=== PATIENT | female | born 1955 | race Caucasian/White ===

== ENCOUNTER 2018-04-23 19:28 | Emergency (ER) | payer OTHER, SELFPAY ==
[2018-04-23 19:35] VITALS: BP 103/62; PULSE 63; RESP 18; TEMP 36.8; O2SAT 99; BMI 18.3
--- NOTE | 2018-04-23 19:56 | PC.NURSE ---
Report from Toshia CHRISTIAN. Family sitting with patient in room. patient is sitting in wheelchiar with nose clips applied. no active bleeding seen but pt. is dabbing at nose in room and there are spots of blood on kleenex
--- NOTE | 2018-04-23 20:02 | ED.ABDPAIN ---
HPI - Abdominal Pain General Chief Complaint: Abdominal Pain Stated Complaint: SHARP PAIN RIGHT LOWER ABDOMINAL AREA Time Seen by Provider: 04/23/18 19:56 Source: patient and family Mode of arrival: ambulatory Limitations: no limitations History of Present Illness HPI narrative: Pleasant patient with history of interstitial cystitis presents with 2 episodes of sharp and stabbing right lower quadrant pain earlier today. She denies provocation, palliation or radiation of her symptoms. They are very brief in nature and not associated with any other symptoms such as fever, chills nor nausea, vomiting or diarrhea. Related Data Home Medications Medication Instructions Recorded Confirmed No Known Home Medications 04/23/18 04/23/18 Allergies Allergy/AdvReac Type Severity Reaction Status Date / Time itraconazole [From SPORANOX] Allergy Unknown Verified 04/23/18 19:54 Review of Systems Review of Systems All systems reviewed & are unremarkable except as noted in HPI and below Constitutional Denies chills, Denies fever(s), Denies lethargy and Denies weakness Eyes Denies change in vision, Denies eye discharge, Denies irritation and Denies loss of vision ENT Ears, Nose, Mouth, and Throat: Denies change in voice, Denies neck pain and Denies sore throat Cardiovascular Denies chest pain, Denies irregular heart rhythm, Denies lightheadedness, Denies palpitations, Denies dyspnea, Denies dyspnea on exertion and Denies orthopnea Respiratory Denies cough, Denies dyspnea, Denies dyspnea on exertion and Denies wheezing Gastrointestinal Gastrointestinal: Reports abdominal pain, Denies change in bowel habits, Denies diarrhea, Denies nausea and Denies vomiting Genitourinary Denies hematuria, Denies flank pain, Denies urinary incontinence and Denies urinary urgency Musculoskeletal Denies neck pain Integumentary/Breasts Denies pruritus, Denies erythema, Denies rash and Denies wounds Neurologic Denies confusion, Denies loss of vision and Denies weakness Psychiatric Denies anxiety, Denies confusion, Denies depression, Denies homicidal ideation and Denies suicidal ideation Endocrine Denies palpitations Hematologic/Lymphatic Denies easy bruising Allergic/Immunologic Denies wheezing Exam Initial Vital Signs Initial Vital Signs: Vital Signs Temperature 98.3 F 04/23/18 19:35 Pulse Rate 63 04/23/18 19:35 Respiratory Rate 18 04/23/18 19:35 Blood Pressure 103/62 04/23/18 19:35 Pulse Oximetry 99 04/23/18 19:35 Const General: cooperative and well developed Nutritional Appearance: well nourished Orientation: alert, awake, oriented x3 and not confused Eyes General: appearance normal, both eyes and all related structures Eyelids: eyelids normal Conjunctivae: conjunctivae normal Sclera: sclerae normal Pupils: PERRL EOM: EOM intact bilaterally Resp Effort & Inspection: normal respiratory effort, able to speak in complete sentences, no respiratory distress and no use of accessory muscles Auscultation: clear to auscultation bilaterally, no rales, no rhonchi and no wheezes GI Inspection: non-distended Palpation: soft, no hepatosplenomegaly, No guarding, No pulsatile mass and No tender Auscultation: normal bowel sounds Back/Spine/Pelvis Back: No CVA tenderness Cervical Spine: cervical ROM normal and No pain with cervical ROM Thoracic/Lumbar Spine: thoracic and lumbar spine normal to inspection Extrem General: full ROM, no clubbing, cyanosis or edema, no pedal edema and no calf tenderness Course Orders Ordered: Discontinued Medications Sodium Chloride (Normal Saline 0.9%) 1,000 mls @ 150 mls/hr IV CONT CATINA Vital Signs - 8 hr 04/23/18 19:35 04/23/18 21:00 Temperature 98.3 F Pulse Rate 63 59 L Respiratory Rate 18 16 Blood Pressure 103/62 Blood Pressure [Right Arm] 100/64 Pulse Oximetry 99 97 MDM - Abdominal Pain Differential Diagnosis Differential diagnosis: Likely abdominal pain, acute appendicitis, calculus of kidney, constipation and small bowel obstruction Medical Records Attestation: I reviewed the patient's medical records. Lab Data Attestation: I reviewed the patient's lab results. Result diagrams: 04/23/18 20:22 04/23/18 20:22 Lab Results 04/23/18 04/23/18 04/23/18 Range/Units 20:05 20:22 20:22 WBC 3.5 L (4.5-11.0) X10^3/uL RBC 4.04 (4.0-5.2) X10^6/uL Hgb 12.3 (12.0-16.0) g/dL Hct 36.7 (36-46) % MCV 90.8 (80-100) fL MCH 30.4 (26-34) PG MCHC 33.5 (30-36) % RDW 13.3 (11.6-14.8) % Plt Count 213 (150-400) X10^3/uL Neut % (Auto) 55.4 (50-75) % Lymph % (Auto) 33.1 (25-40) % [place] % (Auto) 9.3 (3-14) % Eos % (Auto) 1.6 L (2-4) % Baso % (Auto) 0.6 (0-2) % Neut # (Auto) 1900 L (9735-2639) /uL Sodium 140 (137-145) mmol/L Potassium 3.7 (3.4-5.1) mmol/L Chloride 100 (98-107) mmol/L Carbon Dioxide 32 (22-32) mmol/L BUN 25 H (7-17) mg/dL Creatinine 1.10 H (0.52-1.04) mg/dL Estimated GFR 50.2 L (>60) mL/min BUN/Creatinine Ratio 22.7 H (6-22) Glucose 116 H (80-110) mg/dL Calcium 9.1 (8.4-10.2) mg/dL Total Bilirubin 0.3 (0.2-1.3) mg/dL AST 28 (14-36) IU/L ALT 24 (9-52) IU/L Alkaline Phosphatase 38 (38-126) U/L Total Protein 6.8 (6.3-8.2) g/dL Albumin 4.4 (3.5-5.0) g/dL Globulin 2.4 (1.7-4.1) g/dL Albumin/Globulin Ratio 1.8 (1.0-2.8) Lipase 160 (23-300) U/L Urine RBC 1-5/hpf (0-5/HPF) Urine WBC 1-5/hpf (0-5/HPF) Ur Squamous Epith Cells 0-1 /hpf Urine Bacteria Occasional (0-1) (None) Ur Culture Indicated? Specimen cultured Micro UA Comment Not Reportable Point of care testing: Urine Dip Bedside Urine Glucose Negative Bedside Urine Bilirubin - Negative Bedside Urine Ketone + 15 Urine Specific [place] 1.025 Bedside Urine Occult Blood - Negative Bedside Urine pH 6.0 Bedside Urine Leukocytes +/- 15 Esterase MDM Narrative Medical decision making narrative: Patient asymptomatic for duration of visit was normal labs and imaging. Exam is unremarkable and history and physical was suggest a more colicky etiology of pain such as renal colic or bladder spasm. Discharge Plan Departure Patient Disposition: Home, Self-Care Clinical Impression: Abdominal pain, acute, right lower quadrant Discharge Date/Time: 04/23/18 21:22 Interventions: ED Discharge Assessment Last Done: 04/23/18 21:21 Instructions: DI for Abdominal Pain-Adult Activity Restrictions/Additional Instructions: *You have been diagnosed with [ acute right lower quadrant pain, kidney stone and appendix considered but thought unlikely ] *What to do: *Follow up with your primary care provider in 2-3 days, call for an appointment and let them know you were seen in the ED and we wanted you to follow up *Return to ER if you should have any new, worsening or concerning symptoms Prescriptions: No Action No Known Home Medications RF: 0
--- NOTE | 2018-04-23 20:15 | PC.NURSE ---
0805 Rakesh at bs for assessment
--- NOTE | 2018-04-23 20:18 | DI.RAD.S_ITS ---
PROCEDURE: XR ACUTE ABDOMEN SERIES INDICATIONS: Abdominal pain TECHNIQUE: One view chest and two views of the abdomen were acquired. COMPARISON: [facility], , CHEST 2 VIEW, 05/11/2009, 21:48. FINDINGS: Surgical changes and devices: None. Chest: Lungs are clear. Heart size is normal. No pleural effusions. No pneumoperitoneum. Abdomen: Bowel gas pattern is normal. No suspicious calcifications. Visualized solid organ contours appear normal. Bones: No suspicious bony lesions. IMPRESSION: No acute process. Dictated by: Ziyad Mahajan M.D. on 04/23/2018 at 20:44 Approved by: Ziyad Mahajan M.D. on 04/23/2018 at 20:44
[2018-04-23 20:33] LABS: Add Manual Diff / Slide Review NO; Basophils Percent Auto 0.6 % (0-2); Eosinophils Percent Auto 1.6 % (2-4); Hematocrit 36.7 % (36-46); Hemoglobin 12.3 g/dL (12.0-16.0); Lymphocytes Percent Auto 33.1 % (25-40); Mean Corpuscular HGB Conc 33.5 % (30-36); Mean Corpuscular Hemoglobin 30.4 PG (26-34); Mean Corpuscular Volume 90.8 fL (80-100); Monocytes Percent Auto 9.3 % (3-14); Neutrophils Absolute Auto 1900 /uL (3000-5900); Neutrophils Percent Auto 55.4 % (50-75); Platelet Count 213 X10^3/uL (150-400); Red Blood Cell Count 4.04 X10^6/uL (4.0-5.2); Red Cell Distribution Width 13.3 % (11.6-14.8); White Blood Cell Count 3.5 X10^3/uL (4.5-11.0)
[2018-04-23 20:38] LABS: Bacteria Urine Occasional (0-1); Culture Indicated Urine Specimen Cultured; RBC Urine 1-5/HPF (0-5/HPF); Squamous Epithelial Cell Urine 0-1 /HPF; WBC Urine 1-5/HPF (0-5/HPF)
[2018-04-23 20:42] LABS: Alanine Aminotransferase 24 IU/L (9-52); Albumin 4.4 g/dL (3.5-5.0); Albumin Globulin Ratio 1.8 (1.0-2.8); Alkaline Phosphatase 38 U/L (38-126); Aspartate Aminotransferase 28 IU/L (14-36); BUN Creatinine Ratio 22.7 (6-22); Bilirubin Total 0.3 mg/dL (0.2-1.3); Blood Urea Nitrogen 25 mg/dL (7-17); Calcium 9.1 mg/dL (8.4-10.2); Carbon Dioxide 32 mmol/L (22-32); Chloride 100 mmol/L (98-107); Estimated Glomerular Filt Rate 50.2 mL/min (>60); Globulin 2.4 g/dL (1.7-4.1); Glucose 116 mg/dL (80-110); HEMOLYSIS 19 (0-50); Lipase 160 U/L (23-300); Potassium 3.7 mmol/L (3.4-5.1); Sodium 140 mmol/L (137-145); Total Protein 6.8 g/dL (6.3-8.2)
[2018-04-23 21:00] VITALS: BP 100/64; PULSE 59; RESP 16; O2SAT 97
--- NOTE | 2018-04-23 21:09 | PC.NURSE ---
after initial assessment Dang told me to hold IV and NS
== END 2018-04-23 21:22 | disposition home or self-care (01) ==
PROVIDERS: Emergency Provider Emergency Medicine
DX: R10.31 Right lower quadrant pain (principal)
CPT/HCPCS: 74022; 80053; 81003; 81015; 83690; 85025; 87086; 99282; 99284

== ENCOUNTER → 2018-05-03 10:33 | Outpatient (CLI) | payer OTHER, SELFPAY ==
--- NOTE | 2018-05-03 | DI.MG.S_ITS ---
BILATERAL DIGITAL SCREENING MAMMOGRAM 3D/2D WITH CAD: 05/03/2018 CLINICAL: Routine screening. Comparison is made to exams dated: 08/11/2016 mammogram, 03/19/2014 mammogram, and 03/06/2014 mammogram - [facility]. The tissue of both breasts is extremely dense, which lowers the sensitivity of mammography. Current study was also evaluated with a Computer Aided Detection (CAD) system. There is an oval mass with an obscured margin in the left breast upper outer aspect anterior depth. This mass is more prominent than on prior exams. Remainder of masses within the breasts bilaterally are stable, including multiple calcified and calcifying masses most consistent with fibroadenomas. Vascular calcifications are present bilaterally No other significant masses, calcifications, or other findings are seen in either breast. IMPRESSION: INCOMPLETE: NEEDS ADDITIONAL IMAGING EVALUATION The upper outer left breast oval mass described above is indeterminate. Additional views with possible ultrasound are recommended. This exam was interpreted at Station ID: [id number]. NOTE: For mammograms, a report in lay terms will be sent to the patient. Approximately 15% of breast malignancies will not be visualized mammographically. In the management of a palpable breast mass, a negative mammogram must not discourage biopsy of a clinically suspicious lesion. Electronically Signed By: Bryce Britton M.D. ecl/:05/03/2018 20:46:48 letter sent: Additional Imaging Needed ACR BI-RADS Category 0: Incomplete [id number]
== END ==
PROVIDERS: Visit Provider Family Medicine
DX: Z12.31 Encounter for screening mammogram for malignant neoplasm of breast (principal)
CPT/HCPCS: 77063; 77067

== ENCOUNTER → 2018-05-21 09:49 | Outpatient (CLI) | payer OTHER, SELFPAY ==
--- NOTE | 2018-05-21 | DI.MG.S_ITS ---
UNILATERAL LEFT DIGITAL DIAGNOSTIC MAMMOGRAM 3D/2D WITH ADDITIONAL VIEWS: 05/21/2018 CLINICAL: Additional evaluation requested from prior study. Comparison is made to exams dated: 05/03/2018 mammogram, 08/11/2016 mammogram, and 03/19/2014 mammogram - [facility]. The tissue of the left breast is extremely dense, which lowers the sensitivity of mammography. The oval mass with an obscured margin in the left breast upper outer aspect anterior depth on screening mammograms persists with additional views, and remains more prominent than on prior exams. Remainder of masses within the breasts bilaterally are stable, including multiple calcified and calcifying masses most consistent with fibroadenomas. No other significant masses, calcifications, or other findings are seen in the breast. IMPRESSION: INCOMPLETE: NEEDS ADDITIONAL IMAGING EVALUATION Oval mass in the left breast upper outer aspect anterior depth remains indeterminate. Targeted ultrasound recommended. This exam was interpreted at Station ID: [id number]. NOTE: For mammograms, a report in lay terms will be sent to the patient. Approximately 15% of breast malignancies will not be visualized mammographically. In the management of a palpable breast mass, a negative mammogram must not discourage biopsy of a clinically suspicious lesion. Electronically Signed By: Bryce Britton M.D. ecl/:05/21/2018 16:57:27 letter sent: Additional Imaging Needed ACR BI-RADS Category 0: Incomplete [id number]
--- NOTE | 2018-05-21 | DI.US.S_ITS ---
ULTRASOUND OF LEFT BREAST: 05/21/2018 CLINICAL: Patient returns for additional imaging over a suspected mass in the left breast. Comparison is made to exams dated: 05/21/2018 mammogram, 05/03/2018 mammogram, and 08/11/2016 mammogram - [facility]. Real-time and Doppler ultrasound of the left breast were performed. Drake scale images of the real-time examination were reviewed. There is a 0.9 cm x 0.8 cm oval mass with an indistinct margin in the left breast at 3 o'clock anterior depth 4 cm from the nipple. This oval mass is hypoechoic with posterior acoustic shadowing. This correlates with mammography findings. Color flow imaging demonstrates that there is no vascularity present. 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 These results and recommendations were discussed with the patient at the time of the exam by [facility] attending radiologist Dr. Lindsey. This exam was interpreted at Station ID: [id number]. Electronically Signed By: Bryce Britton M.D. ecl/:05/21/2018 17:06:47 letter sent: Biopsy Required Ultrasound BI-RADS: 4a Suspicious abnormality - low suspicion for malignancy
== END ==
PROVIDERS: PCP Family Medicine; Visit Provider Family Medicine
DX: R92.8 Other abnormal and inconclusive findings on diagnostic imaging of breast (principal); N63.21 Unspecified lump in the left breast, upper outer quadrant
CPT/HCPCS: 76642; 77065; G0279

== ENCOUNTER → 2018-05-29 13:13 | Outpatient (REF) | payer OTHER, SELFPAY | LOC: LAB 13:13 | PROVIDERS: PCP Family Medicine; Visit Provider Otolaryngology | DX: Q18.1 Preauricular sinus and cyst (principal); L08.9 Local infection of the skin and subcutaneous tissue, unspecified | CPT/HCPCS: 87070; 87075; 87205 ==

== ENCOUNTER → 2018-06-05 12:18 | Outpatient (CLI) | payer OTHER, SELFPAY ==
--- NOTE | 2018-06-05 | DI.US.S_ITS ---
ULTRASOUND GUIDED BIOPSY LEFT BREAST USING VACUUM DEVICE WITH MARKING DEVICE INSERTED AND POST MAMMOGRAPHIC IMAGIN06/05/2018 CLINICAL: Left breast mass. PATIENT CONSENT: Risks (minor bleeding, infection, vasovagal reaction and repeat procedure), benefits and alternatives were explained to the patient and written informed consent was obtained. Correlation is made to exams dated: 06/05/2018 mammogram, 05/21/2018 ultrasound, and 05/21/2018 mammogram - [facility]. An ultrasound guided biopsy using real-time ultrasound was performed for the concerning circumscribed round solid mass located in the left breast at 3 o'clock posterior depth. This was described on the previous mammography and ultrasound reports. The skin was prepped in the usual manner. Local anesthetic was administered to the access site. A skin chris was made in the breast. The abnormality was approached from the lateral aspect. A 13 gauge biopsy needle was placed adjacent to the abnormality under ultrasound guidance. Once the needle was documented to be in the correct location, eight specimens were obtained using the Mammotome biopsy system. The patient received additional local anesthetic during the procedure. A clip was inserted into the biopsy cavity. A skin closure strip was applied to the access site. Post procedure mammographic imaging demonstrates the clip at the targeted area and partial removal of the abnormality. The specimens were sent to the laboratory for pathological analysis. IMPRESSION: ULTRASOUND GUIDED BIOPSY BENIGN Ultrasound guided biopsy of the solid mass in the left breast at 3 o'clock posterior depth was successful. Pathology demonstrates benign breast parenchyma with fibroadenomatoid changes. Findings are concordant with mammogram and ultrasound. Recommend return to screening mammography. This exam was interpreted at Station ID: [id number]. Alfredo nava,rebeka/:06/07/2018 11:47:44
--- NOTE | 2018-06-05 | PATH_ITS ---
[facility] Accession Number: [id number] . 01 Material submitted: . LEFT BREAST MASS . 01 Clinical history: . LEFT BREAST MASS 3 O'CLOCK 4CM FROM NIPPLE . 01 Diagnosis: Left Breast Mass, 3 o'clock, 4 cm From Nipple, Biopsy: Benign breast parenchyma with fibroadenomatoid changes and few microcalcifications associated with benign ducts. Negative for atypia or malignancy, see comment. MRV/06/06/2018 . 01 Comment: Clinical and radiologic correlation is needed to ensure that the area of interest has been adequately sampled. . As part of ongoing business quality assurance analyst, this case has also been reviewed by Dr. Martha Freeman, who agrees with the interpretation. . 01 Electronically signed: . Jackie Kilpatrick MD, Pathologist NPI- [id number] . 01 Gross description: . Received one formalin-filled container labeled with the patient's name and designated left breast mass 3 o'clock 4 cm from nipple. The sample is received with a plastic filter, sample loose in container and consists of multiple light yellow-christopher, rough, cylindrical-shaped portions of tissue which aggregate to 1.5 x 0.6 x 0.3 cm. The specimen is filtered and entirely submitted in one cassette. Collection date: 06/05/2018. Collection time: 1345. Total fixation time: 12 hours, up to 24. ([id number]) /FRR . 01 Pathologist provided ICD-10: N63.20 . 01 CPT . 307616 Performed at: [address] [address], [place], [place] [id number] MD David Cotton MD Phone: [phone]
--- NOTE | 2018-06-05 | DI.MG.S_ITS ---
UNILATERAL LEFT DIGITAL DIAGNOSTIC MAMMOGRAM POST-NEEDLE BIOPSY: 06/05/2018 CLINICAL: Post clip placement. Left breast mass. Comparison is made to exams dated: 05/21/2018 mammogram, 05/03/2018 mammogram, and 08/11/2016 mammogram - [facility]. The tissue of the left breast is extremely dense, which lowers the sensitivity of mammography. There is a marker clip in the appropriate position in the left breast at 3 o'clock middle depth. This marker clip placement is at biopsy site. This correlates with ultrasound findings. IMPRESSION: POST PROCEDURE MAMMOGRAM FOR MARKER PLACEMENT There was a successful marker clip placement in the left breast middle depth. This exam was interpreted at Station ID: [id number]. NOTE: For mammograms, a report in lay terms will be sent to the patient. Approximately 15% of breast malignancies will not be visualized mammographically. In the management of a palpable breast mass, a negative mammogram must not discourage biopsy of a clinically suspicious lesion. Electronically Signed By: Alfredo nava/radha:06/05/2018 17:16:05 ACR BI-RADS Category Post-procedure mammogram for marker placement
== END ==
PROVIDERS: PCP Family Medicine; Visit Provider Family Medicine
DX: N60.22 Fibroadenosis of left breast (principal); R92.0 Mammographic microcalcification found on diagnostic imaging of breast
CPT/HCPCS: 19083; 77065

== ENCOUNTER 2018-09-17 14:25 | Emergency (ER) | payer OTHER, SELFPAY ==
[2018-09-17 14:35] VITALS: BP 134/78; PULSE 98; RESP 12; O2SAT 99; BMI 17.4
--- NOTE | 2018-09-17 15:05 | ED.ABDPAIN ---
HPI - Abdominal Pain <MARITO Fajardo - Last Filed: 09/17/18 22:17> General Chief Complaint: Abdominal Pain Stated Complaint: STOMACH PAIN,BP IS LOW Time Seen by Provider: 09/17/18 15:05 Source: patient Mode of arrival: ambulatory Limitations: no limitations History of Present Illness HPI narrative: 62-year-old female with history of reflux disease here for complaint of pain into her umbilical area over the past couple weeks. She has been seen for this by her primary care provider and has been referred to GI. GI states she has to be put on a PPI. She does not wish to take PPI. She denies any trauma to the area. No fevers no chills. No nausea vomiting. No urinary symptoms. Last bowel movement was yesterday and was unremarkable. She denies any flank pain. No stressors relievers of her pain. No other concerns or complaints. MD complaint: abdominal pain Related Data Home Medications Medication Instructions Recorded Confirmed estradiol [Estrace] 1 applic VAGINAL 3XW 09/17/18 09/17/18 magnesium glycinate 1 tab PO TID 09/17/18 09/17/18 metoprolol succinate 25 mg PO PRN PRN 09/17/18 09/17/18 ranitidine HCl [Zantac] 150 mg PO BID 09/17/18 09/17/18 simethicone [Gas-X Extra Strength] 1 tab PO BID 09/17/18 09/17/18 Allergies Allergy/AdvReac Type Severity Reaction Status Date / Time itraconazole [From SPORANOX] Allergy Unknown Verified 04/23/18 19:54 Review of Systems <MARITO Fajardo - Last Filed: 09/17/18 22:17> Constitutional Denies chills, Denies fever(s), Denies lethargy and Denies weakness Eyes Denies change in vision, Denies eye discharge, Denies irritation and Denies loss of vision ENT Ears, Nose, Mouth, and Throat: Denies change in voice, Denies neck pain and Denies sore throat Cardiovascular Denies chest pain, Denies irregular heart rhythm, Denies lightheadedness, Denies palpitations, Denies dyspnea, Denies dyspnea on exertion and Denies orthopnea Respiratory Denies cough, Denies dyspnea, Denies dyspnea on exertion and Denies wheezing Gastrointestinal Gastrointestinal: Reports abdominal pain, Denies change in bowel habits, Denies diarrhea, Denies nausea and Denies vomiting Genitourinary Denies hematuria, Denies flank pain, Denies urinary incontinence and Denies urinary urgency Musculoskeletal Denies neck pain Integumentary/Breasts Denies pruritus, Denies erythema, Denies rash and Denies wounds Neurologic Denies confusion, Denies loss of vision and Denies weakness Psychiatric Denies anxiety, Denies confusion, Denies depression, Denies homicidal ideation and Denies suicidal ideation Endocrine Denies palpitations Hematologic/Lymphatic Denies easy bruising Allergic/Immunologic Denies wheezing Exam <MARITO Fajardo - Last Filed: 09/17/18 22:17> Initial Vital Signs Initial Vital Signs: Vital Signs Pulse Rate 98 H 09/17/18 14:35 Respiratory Rate 12 09/17/18 14:35 Blood Pressure 134/78 09/17/18 14:35 Pulse Oximetry 99 09/17/18 14:35 Const General: cooperative and well developed Nutritional Appearance: well nourished Orientation: alert, awake, oriented x3 and not confused [facility] Mouth: oral mucosae normal and moist mucous membranes Eyes Conjunctivae: conjunctivae normal Sclera: sclerae normal Pupils: PERRL EOM: EOM intact bilaterally Resp Effort & Inspection: normal respiratory effort, able to speak in complete sentences, no respiratory distress and no use of accessory muscles Auscultation: clear to auscultation bilaterally, no rales, no rhonchi and no wheezes Cardio Rate: regular rate Rhythm: regular rhythm Heart Sounds: no click, no gallops, no murmurs and no rubs GI Inspection: non-distended Palpation: soft, no hepatosplenomegaly, No guarding, No pulsatile mass and No tender Auscultation: normal bowel sounds Other: Tenderness on palpation to bilateral umbilical area General: No CVA tenderness Skin General: no rashes or lesions noted, No jaundice and No petechiae Neuro General: alert, oriented x3, gait normal and no focal motor deficits Speech: speech normal <Jessica Smith DO - Last Filed: 09/18/18 08:18> Initial Vital Signs Initial Vital Signs: Vital Signs Pulse Rate 98 H 09/17/18 14:35 Respiratory Rate 12 09/17/18 14:35 Blood Pressure 134/78 09/17/18 14:35 Pulse Oximetry 99 09/17/18 14:35 Course <MARITO Fajardo - Last Filed: 09/17/18 22:17> Orders Ordered: ED Orders 09/17/18 15:44 CT abdomen pelvis w con Stat 09/17/18 16:10 Complete Blood Count AUTO DIFF Stat Comprehensive Metabolic Panel Stat Lipase Stat Vital Signs - 8 hr 09/17/18 14:35 09/17/18 15:56 09/17/18 18:03 Pulse Rate 98 H 75 70 Respiratory Rate 12 15 18 Blood Pressure 134/78 97/54 L Blood Pressure [Right Arm] 112/67 Pulse Oximetry 99 100 100 <Jessica Smith DO - Last Filed: 09/18/18 08:18> Orders Ordered: ED Orders 09/17/18 15:44 CT abdomen pelvis w con Stat 09/17/18 16:10 Complete Blood Count AUTO DIFF Stat Comprehensive Metabolic Panel Stat Lipase Stat Vital Signs - 8 hr 09/17/18 14:35 09/17/18 15:56 09/17/18 18:03 Pulse Rate 98 H 75 70 Respiratory Rate 12 15 18 Blood Pressure 134/78 97/54 L Blood Pressure [Right Arm] 112/67 Pulse Oximetry 99 100 100 MDM - Abdominal Pain <MARITO Fajardo - Last Filed: 09/17/18 22:17> Lab Data Result diagrams: 09/17/18 16:10 09/17/18 16:10 Lab Results 09/17/18 09/17/18 Range/Units 16:10 16:10 WBC 4.2 L (4.5-11.0) X10^3/uL RBC 4.41 (4.0-5.2) X10^6/uL Hgb 13.3 (12.0-16.0) g/dL Hct 40.4 (36-46) % MCV 91.8 (80-100) fL MCH 30.1 (26-34) PG MCHC 32.8 (30-36) % RDW 13.8 (11.6-14.8) % Plt Count 246 (150-400) X10^3/uL Neut % (Auto) 68.0 (50-75) % Lymph % (Auto) 21.4 L (25-40) % [place] % (Auto) 7.8 (3-14) % Eos % (Auto) 1.6 L (2-4) % Baso % (Auto) 1.2 (0-2) % Neut # (Auto) 2900 L (4872-7986) /uL Sodium 143 (137-145) mmol/L Potassium 4.3 (3.4-5.1) mmol/L Chloride 101 (98-107) mmol/L Carbon Dioxide 30 (22-32) mmol/L BUN 21 H (7-17) mg/dL Creatinine 0.80 (0.52-1.04) mg/dL Estimated GFR > 60.0 (>60) mL/min BUN/Creatinine Ratio 26.3 H (6-22) Glucose 89 (80-110) mg/dL Calcium 9.4 (8.4-10.2) mg/dL Total Bilirubin 0.2 (0.2-1.3) mg/dL AST 24 (14-36) IU/L ALT 26 (9-52) IU/L Alkaline Phosphatase 52 (38-126) U/L Total Protein 7.3 (6.3-8.2) g/dL Albumin 4.7 (3.5-5.0) g/dL Globulin 2.6 (1.7-4.1) g/dL Albumin/Globulin Ratio 1.8 (1.0-2.8) Lipase 94 (23-300) U/L Point of care testing: Urine Dip Bedside Urine Glucose Negative Bedside Urine Bilirubin - Negative Bedside Urine Ketone - Negative Urine Specific [place] 1.015 Bedside Urine Occult Blood - Negative Bedside Urine pH 8.0 Bedside Urine Protein - Negative Bedside Urine Urobilinogen - Negative Bedside Urine Nitrite - Negative Bedside Urine Leukocytes - Negative Esterase Imaging Data CT scan - abdomen: Radiologist's impression: [address] [place], [place] [id number] CT Scan Report Signed Patient: Emi Gill MMR#: [id number] : 5Acct:[id number] Age/Sex: 62 / FDate of Service: 09/17/18 Loc: ED Accession Number: [id number] Procedure: CT abdomen pelvis w con Ordering Provider: Tomer Gar PROCEDURE: CT ABDOMEN PELVIS W CON INDICATIONS: Pain to umbilical area last couple weeks TECHNIQUE: After the administration of oral and intravenous contrast, 5 mm thick sections acquired from the diaphragms to the symphysis. 5 mm thick coronal and sagittal reformats were performed. For radiation dose reduction, the following was used: automated exposure control, adjustment of mA and/or kV according to patient size. COMPARISON: Outside Film, CT, CT ABDOMEN PELVIS WITH/WITHOUT CONTRAST, 12/29/2015, 8:53. FINDINGS: Image quality: Excellent. ABDOMEN: Lung bases: Linear scarring/atelectasis in the anterior aspect of bilateral lung bases are seen. No pleural effusion or pneumothorax Heart size is normal. Solid organs: Liver is normal in size and enhancement. 10 x 7 mm cyst in the inferior aspect of left hepatic lobe is again seen, unchanged from previous study. Gallbladder is within normal limits. Biliary system is non-dilated. Pancreas enhances normally. Spleen is normal in size and enhancement. No adrenal nodules. Kidneys are normal in size and enhancement, without hydronephrosis. Peritoneum and bowel: Stomach, small bowel, and colon loops are normal in caliber and wall thickness. Significant fecal burden throughout the colon is seen. Appendix is not definitively identified. No secondary signs of acute appendicitis is seen in right lower quadrant abdomen. Nodes and vessels: No retroperitoneal or mesenteric adenopathy. Aorta and inferior vena cava are normal in caliber. Miscellaneous: No ventral hernias. PELVIS: Genitourinary: Bladder wall thickness is normal. Miscellaneous: No inguinal hernias or adenopathy. 4 x 3.6 cm cystic structure in right adnexal with internal focal calcification is again seen, unchanged in size and appearance compared to 2006 study and may represent dermoid cyst. Bones: No suspicious bony lesions. No vertebral body compression fractures. IMPRESSION: 1. Constipation. No evidence of bowel obstruction. No free fluid or free air. No secondary signs of acute appendicitis. No evidence of diverticulitis. 2. 4 x 3.6 cm cystic structure with in right adnexa with internal calcification and may represent a dermoid cyst. This is unchanged from 2016 study. 3. Stable tiny cyst in the anterior-inferior aspect of left hepatic lobe. Dictated by: Laureano Astorga M.D. on 09/17/2018 at 17:11 Approved by: Laureano Astorga M.D. on 09/17/2018 at 17:21 MDM Narrative Medical decision making narrative: CBC and Chem panel were obtained were unremarkable. Lipase was normal. Urinalysis was negative for urinary tract infection. CT of the abdomen was obtained show signs of constipation. No bowel obstruction. No acute appendicitis. No diverticulitis. There is a 4 cm cystic structure to the right adnexa consistent with a dermoid cyst that is stable from 2016. CT also shows a stable small cyst in the anterior inferior aspect of the left hepatic lobe. No other acute findings. Differential between abdominal wall pain or radiating pain into to her reflex. Will have her follow up with Gastroenterology for further evaluation and treatment. For any worsening symptoms return to the emergency room. [id number] Tylenol as needed for any discomfort. <Jessica Smith, DO - Last Filed: 09/18/18 08:18> Lab Data Lab Results 09/17/18 09/17/18 Range/Units 16:10 16:10 WBC 4.2 L (4.5-11.0) X10^3/uL RBC 4.41 (4.0-5.2) X10^6/uL Hgb 13.3 (12.0-16.0) g/dL Hct 40.4 (36-46) % MCV 91.8 (80-100) fL MCH 30.1 (26-34) PG MCHC 32.8 (30-36) % RDW 13.8 (11.6-14.8) % Plt Count 246 (150-400) X10^3/uL Neut % (Auto) 68.0 (50-75) % Lymph % (Auto) 21.4 L (25-40) % [place] % (Auto) 7.8 (3-14) % Eos % (Auto) 1.6 L (2-4) % Baso % (Auto) 1.2 (0-2) % Neut # (Auto) 2900 L (0670-4983) /uL Sodium 143 (137-145) mmol/L Potassium 4.3 (3.4-5.1) mmol/L Chloride 101 (98-107) mmol/L Carbon Dioxide 30 (22-32) mmol/L BUN 21 H (7-17) mg/dL Creatinine 0.80 (0.52-1.04) mg/dL Estimated GFR > 60.0 (>60) mL/min BUN/Creatinine Ratio 26.3 H (6-22) Glucose 89 (80-110) mg/dL Calcium 9.4 (8.4-10.2) mg/dL Total Bilirubin 0.2 (0.2-1.3) mg/dL AST 24 (14-36) IU/L ALT 26 (9-52) IU/L Alkaline Phosphatase 52 (38-126) U/L Total Protein 7.3 (6.3-8.2) g/dL Albumin 4.7 (3.5-5.0) g/dL Globulin 2.6 (1.7-4.1) g/dL Albumin/Globulin Ratio 1.8 (1.0-2.8) Lipase 94 (23-300) U/L Point of care testing: Urine Dip Bedside Urine Glucose Negative Bedside Urine Bilirubin - Negative Bedside Urine Ketone - Negative Urine Specific [place] 1.015 Bedside Urine Occult Blood - Negative Bedside Urine pH 8.0 Bedside Urine Protein - Negative Bedside Urine Urobilinogen - Negative Bedside Urine Nitrite - Negative Bedside Urine Leukocytes - Negative Esterase Discharge Plan Departure Patient Disposition: Home Clinical Impression: Abdominal pain Discharge Date/Time: 09/17/18 18:03 Interventions: ED Discharge Assessment Last Done: 09/17/18 18:03 Instructions: DI for Abdominal Pain-Adult Activity Restrictions/Additional Instructions: Laboratory results and imaging today did not show any acute findings that point into the reason of her abdominal pain. CT of the abdomen shows constipation. CT also showed a stable cyst to the right pelvic region that is stable from a a study in 2016. And also shows a small cyst that is stable to the left hepatic lobe. Differential between abdominal wall pain and pain in due to reflex. Follow up with Gastroenterology as directed. Continue to use your reflux medications as prescribed. For any worsening symptoms return to the emergency room. Prescriptions: No Action simethicone [Gas-X Extra Strength] 125 mg Capsule 1 tab PO BID RF: 0 ranitidine HCl [Zantac] 150 mg Tablet 150 mg PO BID RF: 0 metoprolol succinate 25 mg tablet extended release 24 hr 25 mg PO PRN PRN (Reason: palpitations) RF: 0 estradiol [Estrace] 0.01 % (0.1 mg/gram) cream 1 applic Vaginal 3XW RF: 0 magnesium glycinate 100 mg Tablet 1 tab PO TID RF: 0 Referrals: Jenni Sanderson DO [Primary Care Provider] - <Jessica Smith DO - Last Filed: 09/18/18 08:18> Cosign ED Attending Cosignature Attestation: I was immediately available in the department for consultation. This documentation has been reviewed and I agree with assessment and plan. Supervised by Jessica Smith, DO
--- NOTE | 2018-09-17 15:44 | DI.CT.S_ITS ---
PROCEDURE: CT ABDOMEN PELVIS W CON INDICATIONS: Pain to umbilical area last couple weeks TECHNIQUE: After the administration of oral and intravenous contrast, 5 mm thick sections acquired from the diaphragms to the symphysis. 5 mm thick coronal and sagittal reformats were performed. For radiation dose reduction, the following was used: automated exposure control, adjustment of mA and/or kV according to patient size. COMPARISON: Outside Film, CT, CT ABDOMEN PELVIS WITH/WITHOUT CONTRAST, 12/29/2015, 8:53. FINDINGS: Image quality: Excellent. ABDOMEN: Lung bases: Linear scarring/atelectasis in the anterior aspect of bilateral lung bases are seen. No pleural effusion or pneumothorax Heart size is normal. Solid organs: Liver is normal in size and enhancement. 10 x 7 mm cyst in the inferior aspect of left hepatic lobe is again seen, unchanged from previous study. Gallbladder is within normal limits. Biliary system is non-dilated. Pancreas enhances normally. Spleen is normal in size and enhancement. No adrenal nodules. Kidneys are normal in size and enhancement, without hydronephrosis. Peritoneum and bowel: Stomach, small bowel, and colon loops are normal in caliber and wall thickness. Significant fecal burden throughout the colon is seen. Appendix is not definitively identified. No secondary signs of acute appendicitis is seen in right lower quadrant abdomen. Nodes and vessels: No retroperitoneal or mesenteric adenopathy. Aorta and inferior vena cava are normal in caliber. Miscellaneous: No ventral hernias. PELVIS: Genitourinary: Bladder wall thickness is normal. Miscellaneous: No inguinal hernias or adenopathy. 4 x 3.6 cm cystic structure in right adnexal with internal focal calcification is again seen, unchanged in size and appearance compared to 2006 study and may represent dermoid cyst. Bones: No suspicious bony lesions. No vertebral body compression fractures. IMPRESSION: 1. Constipation. No evidence of bowel obstruction. No free fluid or free air. No secondary signs of acute appendicitis. No evidence of diverticulitis. 2. 4 x 3.6 cm cystic structure with in right adnexa with internal calcification and may represent a dermoid cyst. This is unchanged from 2016 study. 3. Stable tiny cyst in the anterior-inferior aspect of left hepatic lobe. Dictated by: Laureano Astorga M.D. on 09/17/2018 at 17:11 Approved by: Laureano Astorga M.D. on 09/17/2018 at 17:21
[2018-09-17 15:56] VITALS: BP 112/67; PULSE 75; RESP 15; O2SAT 100
[2018-09-17 16:20] LABS: Add Manual Diff / Slide Review NO; Basophils Percent Auto 1.2 % (0-2); Eosinophils Percent Auto 1.6 % (2-4); Hematocrit 40.4 % (36-46); Hemoglobin 13.3 g/dL (12.0-16.0); Lymphocytes Percent Auto 21.4 % (25-40); Mean Corpuscular HGB Conc 32.8 % (30-36); Mean Corpuscular Hemoglobin 30.1 PG (26-34); Mean Corpuscular Volume 91.8 fL (80-100); Monocytes Percent Auto 7.8 % (3-14); Neutrophils Absolute Auto 2900 /uL (3000-5900); Platelet Count 246 X10^3/uL (150-400); Red Blood Cell Count 4.41 X10^6/uL (4.0-5.2); Red Cell Distribution Width 13.8 % (11.6-14.8); White Blood Cell Count 4.2 X10^3/uL (4.5-11.0)
[2018-09-17 16:34] LABS: Alanine Aminotransferase 26 IU/L (9-52); Albumin 4.7 g/dL (3.5-5.0); Albumin Globulin Ratio 1.8 (1.0-2.8); Alkaline Phosphatase 52 U/L (38-126); Aspartate Aminotransferase 24 IU/L (14-36); BUN Creatinine Ratio 26.3 (6-22); Bilirubin Total 0.2 mg/dL (0.2-1.3); Blood Urea Nitrogen 21 mg/dL (7-17); Calcium 9.4 mg/dL (8.4-10.2); Carbon Dioxide 30 mmol/L (22-32); Chloride 101 mmol/L (98-107); Estimated Glomerular Filt Rate > 60.0 mL/min (>60); Globulin 2.6 g/dL (1.7-4.1); Glucose 89 mg/dL (80-110); HEMOLYSIS < 15 (0-50); Lipase 94 U/L (23-300); Potassium 4.3 mmol/L (3.4-5.1); Sodium 143 mmol/L (137-145); Total Protein 7.3 g/dL (6.3-8.2)
[2018-09-17 18:03] VITALS: BP 97/54; PULSE 70; RESP 18; O2SAT 100
== END 2018-09-17 18:03 | disposition home or self-care (01) ==
PROVIDERS: Emergency Provider Nurse Practitioner Family; PCP Family Medicine
DX: R10.9 Unspecified abdominal pain (principal)
CPT/HCPCS: 36591; 74177; 80053; 81003; 83690; 85025; 99282; 99285; Q9967

== ENCOUNTER → 2019-04-03 14:20 | Outpatient (CLI) | payer OTHER, SELFPAY | PROVIDERS: PCP Family Medicine; Visit Provider Dermatology | DX: D89.9 Disorder involving the immune mechanism, unspecified (principal) | CPT/HCPCS: 83520 ==

== ENCOUNTER → 2019-09-10 16:38 | Outpatient (CLI) | payer OTHER, SELFPAY ==
--- NOTE | 2019-09-10 16:46 | DI.MG.S_ITS ---
BILATERAL DIGITAL SCREENING MAMMOGRAM 3D/2D WITH CAD: 09/10/2019 CLINICAL: Routine screening. Comparison is made to exams dated: 05/03/2018 mammogram, 08/11/2016 mammogram, and 03/19/2014 mammogram - [facility]. The tissue of both breasts is extremely dense, which lowers the sensitivity of mammography. Current study was also evaluated with a Computer Aided Detection (CAD) system. No significant masses, calcifications, or other findings are seen in either breast. There has been no significant interval change. IMPRESSION: NEGATIVE There is no mammographic evidence of malignancy. A 1 year screening mammogram is recommended. This exam was interpreted at Station ID: [id number]. NOTE: For mammograms, a report in lay terms will be sent to the patient. Approximately 15% of breast malignancies will not be visualized mammographically. In the management of a palpable breast mass, a negative mammogram must not discourage biopsy of a clinically suspicious lesion. Electronically Signed By: David staley/radha:09/10/2019 17:51:16 letter sent: Normal Exam ACR BI-RADS Category 1: Negative 3341F
== END ==
PROVIDERS: PCP Family Medicine; Visit Provider Family Medicine
DX: Z12.31 Encounter for screening mammogram for malignant neoplasm of breast (principal)
CPT/HCPCS: 77063; 77067

== ENCOUNTER → 2020-09-15 11:20 | Outpatient (CLI) | payer MEDICARE, OTHER, SELFPAY ==
--- NOTE | 2020-09-15 | DI.MG.S_ITS ---
BILATERAL DIGITAL SCREENING MAMMOGRAM 3D/2D WITH CAD: 09/15/2020 CLINICAL: Routine screening. Comparison is made to exams dated: 09/10/2019 mammogram, 05/03/2018 mammogram, and 08/11/2016 mammogram - [facility]. The tissue of both breasts is extremely dense, which lowers the sensitivity of mammography. Current study was also evaluated with a Computer Aided Detection (CAD) system. There are stable benign calcifications in both breasts. There also are stable benign vascular calcifications in the left breast. No significant masses, calcifications, or other findings are seen in either breast. There has been no significant interval change. IMPRESSION: BENIGN There is no mammographic evidence of malignancy. A 1 year screening mammogram is recommended. This exam was interpreted at Station ID: [id number]. NOTE: For mammograms, a report in lay terms will be sent to the patient. Approximately 15% of breast malignancies will not be visualized mammographically. In the management of a palpable breast mass, a negative mammogram must not discourage biopsy of a clinically suspicious lesion. Electronically Signed By: Regino Millan acr/penrad:09/15/2020 12:44:52 letter sent: Normal Exam ACR BI-RADS Category 2: Benign Finding(s) 3342F
== END ==
PROVIDERS: PCP Physician Assistant; Referring Provider Physician Assistant; Visit Provider Physician Assistant
DX: Z12.31 Encounter for screening mammogram for malignant neoplasm of breast (principal)
CPT/HCPCS: 77063; 77067

== ENCOUNTER → 2021-10-27 15:15 | Outpatient (CLI) | payer MEDICARE, OTHER, SELFPAY ==
--- NOTE | 2021-10-27 | DI.MG.S_ITS ---
BILATERAL DIGITAL SCREENING MAMMOGRAM 3D/2D WITH CAD: 10/27/2021 CLINICAL: Routine screening. Comparison is made to exams dated: 09/15/2020 mammogram, 09/10/2019 mammogram, 06/05/2018 mammogram, and 05/03/2018 mammogram - [facility]. The tissue of both breasts is extremely dense, which lowers the sensitivity of mammography. Current study was also evaluated with a Computer Aided Detection (CAD) system. There are stable benign calcifications in both breasts. There also are stable benign vascular calcifications in both breasts. No significant masses, calcifications, or other findings are seen in either breast. There has been no significant interval change. IMPRESSION: BENIGN There is no mammographic evidence of malignancy. A 1 year screening mammogram is recommended. This exam was interpreted at Station ID: [id number]. NOTE: For mammograms, a report in lay terms will be sent to the patient. Approximately 15% of breast malignancies will not be visualized mammographically. In the management of a palpable breast mass, a negative mammogram must not discourage biopsy of a clinically suspicious lesion. Electronically Signed By: David staley/radha:10/28/2021 09:35:23 letter sent: Normal Exam ACR BI-RADS Category 2: Benign Finding(s) 3342F
== END ==
PROVIDERS: PCP Physician Assistant; Referring Provider Physician Assistant; Visit Provider Physician Assistant
DX: Z12.31 Encounter for screening mammogram for malignant neoplasm of breast (principal)
CPT/HCPCS: 77063; 77067

== ENCOUNTER 2022-01-24 13:06 | Emergency (ER) | payer MEDICARE, OTHER, SELFPAY ==
[2022-01-24] VITALS (8 sets, daily range): BP systolic 108–148; BP diastolic 58–67; PULSE 53–156; RESP 17–31; TEMP 36.6; O2SAT 99–100; BMI 18.3
--- NOTE | 2022-01-24 13:16 | DI.RAD.S_ITS ---
PROCEDURE: XR CHEST 1V INDICATIONS: chest pain TECHNIQUE: One view of the chest was acquired. COMPARISON: [facility], , CHEST 2 VIEW, 05/11/2009, 21:48. FINDINGS: Surgical changes and devices: None. Lungs and pleura: Lungs are clear. No pleural effusions or pneumothorax. Mediastinum: Mediastinal contours appear normal. Heart size is normal. Bones and chest wall: No suspicious bony lesions. Overlying soft tissues appear unremarkable. IMPRESSION: No acute pulmonary process. Dictated by: Eugenia Rodriguez M.D. on 01/24/2022 at 13:52 Approved by: Eugenia Rodriguez M.D. on 01/24/2022 at 13:53
[2022-01-24 13:43] LABS: Add Manual Diff / Slide Review NO; Basophils Absolute Auto 0 /uL (0-100); Basophils Percent Auto 0.5 % (0-2); Eosinophils Absolute Auto 100 /uL (0-450); Eosinophils Percent Auto 1.5 % (2-4); Hematocrit 41.8 % (36-46); Hemoglobin 13.7 g/dL (12.0-16.0); Lymphocytes Absolute Auto 2000 /uL (1100-4500); Lymphocytes Percent Auto 33.6 % (25-40); Mean Corpuscular HGB Conc 32.8 % (30-36); Mean Corpuscular Hemoglobin 30.1 PG (26-34); Mean Corpuscular Volume 91.6 fL (80-100); Monocytes Absolute Auto 400 /uL (0-900); Monocytes Percent Auto 6.8 % (3-14); Neutrophils Absolute Auto 3300 /uL (1500-7000); Neutrophils Percent Auto 57.6 % (50-75); Platelet Count 278 X10^3/uL (150-400); Red Blood Cell Count 4.57 X10^6/uL (4.0-5.2); Red Cell Distribution Width 14.1 % (11.6-14.8); White Blood Cell Count 5.8 X10^3/uL (4.5-11.0)
[2022-01-24 13:46] LABS: Alanine Aminotransferase 28 IU/L (<35); Albumin 5.5 g/dL (3.5-5.0); Albumin Globulin Ratio 1.6 (1.0-2.8); Alkaline Phosphatase 54 U/L (38-126); Aspartate Aminotransferase 31 IU/L (14-36); BUN Creatinine Ratio 28.6 (6-22); Bilirubin Total 0.4 mg/dL (0.2-1.3); Blood Urea Nitrogen 20 mg/dL (7-17); Calcium 9.9 mg/dL (8.4-10.2); Carbon Dioxide 26 mmol/L (22-32); Chloride 101 mmol/L (98-107); Creatine Kinase 93 U/L (30-135); Estimated Glomerular Filt Rate > 60.0 mL/min (>60); Globulin 3.4 g/dL (1.7-4.1); Glucose 115 mg/dL (80-110); HEMOLYSIS < 15 (0-50); Lipase 141 U/L (23-300); Potassium 3.5 mmol/L (3.4-5.1); Sodium 139 mmol/L (137-145); Total Protein 8.9 g/dL (6.3-8.2)
[2022-01-24 13:57] LABS: Troponin I < 0.012 ng/mL (0.01-0.034)
--- NOTE | 2022-01-24 15:23 | PC.NURSE ---
Pt states she was outside weeding and chasing after her dog, had sudden palpitations with chest pain, dizziness and nausea. History of afib. [place] her heart racing, states she walks on the treadmill daily to increase her heart rate, today's episode felt much different then that. Took metoprolol ER (prescribed prn) at approximately 1245. Mosty resolved symptoms, states she still feels like her heart is faster than usual, her HR is typically in the 60's, current heart rate per telemetry is 55.
--- NOTE | 2022-01-24 16:54 | ED.ARRPALP ---
HPI - Arrhythmia/Palpitations General Chief Complaint: Arrhythmia/Palpitations Stated Complaint: Heart palps, dizzy Time Seen by Provider: 01/24/22 16:38 History of Present Illness HPI narrative: 66-year-old female nonsmoker with history of occasional tachyarrhythmia presents with her in the chief complaint of strong palpitations dizziness and lightheadedness became on her earlier today and seemed to largely resolve after taking her metoprolol. She has had episodes in the past but has been quite a few years and she had previously been told she has SVT or maybe AFib. She is not anticoagulated. Her symptoms resolved soon after checking in. She denies any recent travel or ongoing symptoms. She denies any change in medications or diet. She states that her heart rate was as high as 150 when she decided to come in Related Data Home Medications Medication Instructions Recorded Confirmed estradiol 1 applic VAGINAL 3XW 09/17/18 09/17/18 magnesium glycinate 100 mg tablet 1 tab PO TID 09/17/18 09/17/18 metoprolol succinate 25 mg 25 mg PO PRN PRN 09/17/18 09/17/18 tablet,extended release 24 hr ranitidine HCl 150 mg tablet 150 mg PO BID 09/17/18 09/17/18 (Zantac) simethicone 125 mg capsule (Gas-X 1 tab PO BID 09/17/18 09/17/18 Extra Strength) Allergies Allergy/AdvReac Type Severity Reaction Status Date / Time itraconazole [From SPORANOX] Allergy Unknown Verified 04/23/18 19:54 Review of Systems Review of Systems Narrative: GENERAL: Denies chills, fatigue, malaise, fever, sweats. HEENT: Denies sinus pain, ear pain, sore throat, difficulty swallowing, dizziness. RESPIRATORY: Denies dyspnea, cough, wheezing, hemoptysis, sputum. CARDIOVASCULAR: See HPI GASTROINTESTINAL: Denies nausea, vomiting, abdominal pain, diarrhea, constipation, melena. : Denies dysuria, frequency, incontinence, hematuria, urinary retention. MUSCULOSKELETAL: denies weakness, joint pain, or bony pain SKIN: Denies rash, skin lesions, or other NEUROLOGIC: See HPI PSYCHIATRIC: No concerning psychosocial issues. 12 point review of systems is negative except for those stated above Patient History Social History Smoking Status: Never smoker Smoking Status: Never smoker alcohol intake frequency: holidays/special occasions only Substance Use Type: does not use Exam Narrative Exam Narrative: GENERAL: [66] year old patient appears stated age. Well-developed patient, in mild distress. HEAD: Atraumatic. Normocephalic. EYES: Pupils equal round and reactive. Extraocular motions intact. No scleral icterus. No injection or drainage. ENT: Nose without bleeding, purulent drainage. Throat without erythema, tonsillar hypertrophy or exudate. Airway patent. NECK: Trachea midline. Non tender CARDIOVASCULAR: Regular rate and rhythm without murmurs, gallops, or rubs. RESPIRATORY: Clear to auscultation. Breath sounds equal bilaterally. No wheezes, rales, or rhonchi. GASTROINTESTINAL: Abdomen soft, non-tender, nondistended. EXTREMITIES: No edema or joint tenderness. BACK: Nontender without deformity or crepitance. No flank tenderness. NEURO: AOx3. SKIN: No rash or erythema of visible areas Initial Vital Signs Initial Vital Signs: Vital Signs Temperature 97.9 F 01/24/22 13:09 Pulse Rate 156 H 01/24/22 13:09 Respiratory Rate 20 01/24/22 13:09 Blood Pressure 148/64 H 01/24/22 13:09 Pulse Oximetry 100 01/24/22 13:09 Course Orders Ordered: ED Orders 01/24/22 13:16 XR chest 1V Stat EKG-12 Lead Stat 01/24/22 13:28 Complete Blood Count AUTO DIFF Stat Comprehensive Metabolic Panel Stat Lipase Stat Magnesium Stat Troponin & CK Cardiac Panel Stat Vital Signs Vital signs: Vital Signs - 8 hr 01/24/22 13:09 01/24/22 15:17 Temperature 97.9 F Pulse Rate 156 H 81 Respiratory Rate 20 19 Blood Pressure 148/64 H 113/67 Pulse Oximetry 100 100 MDM - Arrhythmia/Palpitations Lab Data Result diagrams: 01/24/22 13:28 01/24/22 13:28 Labs: Lab Results 01/24/22 01/24/22 Range/Units 13:28 13:28 WBC 5.8 (4.5-11.0) X10^3/uL RBC 4.57 (4.0-5.2) X10^6/uL Hgb 13.7 (12.0-16.0) g/dL Hct 41.8 (36-46) % MCV 91.6 (80-100) fL MCH 30.1 (26-34) PG MCHC 32.8 (30-36) % RDW 14.1 (11.6-14.8) % Plt Count 278 (150-400) X10^3/uL Neut % (Auto) 57.6 (50-75) % Lymph % (Auto) 33.6 (25-40) % Lake % (Auto) 6.8 (3-14) % Eos % (Auto) 1.5 L (2-4) % Baso % (Auto) 0.5 (0-2) % Neut # (Auto) 3300 (1570-5864) /uL Lymph # (Auto) 2000 (5427-4397) /uL Lake # (Auto) 400 (0-900) /uL Eos # (Auto) 100 (0-450) /uL Baso # (Auto) 0 (0-100) /uL Sodium 139 (137-145) mmol/L Potassium 3.5 (3.4-5.1) mmol/L Chloride 101 (98-107) mmol/L Carbon Dioxide 26 (22-32) mmol/L BUN 20 H (7-17) mg/dL Creatinine 0.70 (0.52-1.04) mg/dL Estimated GFR > 60.0 (>60) mL/min BUN/Creatinine Ratio 28.6 H (6-22) Glucose 115 H (80-110) mg/dL Calcium 9.9 (8.4-10.2) mg/dL Magnesium 2.0 (1.6-2.3) mg/dL Total Bilirubin 0.4 (0.2-1.3) mg/dL AST 31 (14-36) IU/L ALT 28 (<35) IU/L Alkaline Phosphatase 54 (38-126) U/L Total Creatine Kinase 93 (30-135) U/L CK-MB (CK-2) TNP CK-MB (CK-2) Rel Index TNP Troponin I < 0.012 (0.01-0.034) ng/mL Total Protein 8.9 H (6.3-8.2) g/dL Albumin 5.5 H (3.5-5.0) g/dL Globulin 3.4 (1.7-4.1) g/dL Albumin/Globulin Ratio 1.6 (1.0-2.8) Lipase 141 (23-300) U/L Imaging Data Chest x-ray: Radiologist's Impresson: [address] [address] XRay Report Signed Patient: Emi Gill MR#: [id number] : 1955 Acct:[id number] Age/Sex: 66 / F Date of Service: 01/24/22 Loc: ED Accession Number: [id number] ?? Procedure: XR chest 1V Ordering Provider: Isaias Cameron D.O. PROCEDURE:? XR CHEST 1V ? INDICATIONS:? chest pain ? TECHNIQUE:? One view of the chest was acquired.? ? COMPARISON:? [facility], , CHEST 2 VIEW, 05/11/2009, 21:48. ? FINDINGS:? ? Surgical changes and devices:? None.? ? Lungs and pleura:? Lungs are clear.? No pleural effusions or pneumothorax.? ? Mediastinum:? Mediastinal contours appear normal.? Heart size is normal.? ? Bones and chest wall:? No suspicious bony lesions.? Overlying soft tissues appear unremarkable.? ? IMPRESSION:? No acute pulmonary process. ? ? Dictated by: Eugenia Rodriguez M.D. on 01/24/2022 at 13:52 ? ? Approved by: Eugenia Rodriguez M.D. on 01/24/2022 at 13:53 ? MDM Narrative Medical decision making narrative: Patient presents with a tachyarrhythmia and a history of the same that resolved soon after arrival. One set of vitals noted heart rate to be in the 150s but she had resolved prior to being hooked up to a monitor. She is asymptomatic, history physical or very reassuring, labs show no significant findings and EKG remains in a sinus rhythm without signs of ischemia. There is no indication for further workup, this is likely a tachyarrhythmia that resolved with the help of metoprolol. She is given extensive return precautions and encouraged to follow closely with her physician team. Discharge Plan Departure Patient Disposition: Home Clinical Impression: Palpitations, Arrhythmia Instructions: Arrhythmias Activity Restrictions/Additional Instructions: *You have been diagnosed with [arrhythmia resolved. As we discussed your history, physical exam, labs, and EKG are very reassuring. It would seem that your metoprolol worked as expected *What to do: *Please continue to take your regular medications as directed. [ ] New medication prescriptions sent to your pharmacy: [ ] [ ] New medication written as a paper prescription [ x] No new medications given *Please follow up with your primary care provider in 2-3 days, call for an appointment. Let them know you were seen in the Emergency Department and that we ask that you be seen in follow up. We will electronically transmit a record of today's note if your PCP is in our system *If you do not have a primary care provider please contact the [facility] Resource line at [phone]. They will ask some questions about your medical history and help get you set up with a doctor in the community. *Return to Emergency Department if you should have any new, worsening or concerning symptoms, such as [fever greater than 101 F, shaking chills, worsening pain, persistent vomiting or other bothersome symptoms] Prescriptions: No Action simethicone [Gas-X Extra Strength] 125 mg Capsule 1 tab PO BID 0RF ranitidine HCl [Zantac] 150 mg Tablet 150 mg PO BID 0RF metoprolol succinate 25 mg tablet extended release 24 hr 25 mg PO PRN PRN (Reason: palpitations) 0RF estradiol [Estrace] 0.01 % (0.1 mg/gram) cream 1 applic Vaginal 3XW 0RF Label Comments: I 2 GRAMS VAGINALLY 3 TIMES A WK magnesium glycinate 100 mg Tablet 1 tab PO TID 0RF Referrals: Chanelle Hsieh PA-C [Primary Care Provider] -
--- NOTE | 2022-01-24 17:22 | PC.NURSE ---
Pt ambulating around department with Dr. Cameron, tolerating well.
== END 2022-01-24 17:33 | disposition home or self-care (01) ==
PROVIDERS: Emergency Provider Emergency Medicine; PCP Physician Assistant
DX: R00.2 Palpitations (principal); I49.9 Cardiac arrhythmia, unspecified
CPT/HCPCS: 36415; 71045; 80053; 82550; 83690; 83735; 84484; 85025; 93005; 93010; 99284

== ENCOUNTER → 2022-11-10 16:25 | Outpatient (CLI) | payer MEDICARE, OTHER, SELFPAY ==
--- NOTE | 2022-11-10 | DI.MG.S_ITS ---
BILATERAL DIGITAL SCREENING MAMMOGRAM 3D/2D WITH CAD: 11/10/2022 CLINICAL: Routine screening. Comparison is made to exams dated: 10/27/2021 mammogram, 09/15/2020 mammogram, and 09/10/2019 mammogram - [facility]. Both breasts are extremely dense, which lowers the sensitivity of mammography (category d />75% glandular tissue). Current study was also evaluated with a Computer Aided Detection (CAD) system. There are stable benign calcifications in both breasts. There also are stable benign vascular calcifications in both breasts. No significant masses, calcifications, or other findings are seen in either breast. There has been no significant interval change. IMPRESSION: BENIGN There is no mammographic evidence of malignancy. A 1 year screening mammogram is recommended. Based on the Tyrer Cuzick model (a risk assessment model) the patient's lifetime risk is 11.9% and her 10 year risk is 6.3%. According to the ACR, ACS, and NCCN guidelines, an annual breast MRI exam along with mammogram is recommended if the patient's lifetime risk is 20% or greater. This exam was interpreted at Station ID: [id number]. NOTE: For mammograms, a report in lay terms will be sent to the patient. Approximately 15% of breast malignancies will not be visualized mammographically. In the management of a palpable breast mass, a negative mammogram must not discourage biopsy of a clinically suspicious lesion. Electronically Signed By: Duy asif/radha:11/11/2022 08:17:50 letter sent: Normal Exam ACR BI-RADS Category 2: Benign Finding(s) 3342F
== END ==
PROVIDERS: PCP Physician Assistant; Referring Provider Physician Assistant; Visit Provider Physician Assistant
DX: Z12.31 Encounter for screening mammogram for malignant neoplasm of breast (principal)
CPT/HCPCS: 77063; 77067

== ENCOUNTER → 2023-06-16 08:44 | Outpatient (CLI) | payer MEDICARE, OTHER, SELFPAY ==
--- NOTE | 2023-06-16 08:47 | DI.MG.S_ITS ---
UNILATERAL LEFT DIGITAL DIAGNOSTIC MAMMOGRAM 3D/2D: 06/16/2023 CLINICAL: Rash x's 2-3 weeks, patient saw MD, no CBE. Comparison is made to exams dated: 11/10/2022 mammogram, 10/27/2021 mammogram, 09/15/2020 mammogram, and 09/10/2019 mammogram - [facility]. The left breast is extremely dense, which lowers the sensitivity of mammography (category d />75% glandular tissue). Benign masses and calcifications are again seen in the left breast. No significant masses, calcifications, or other findings are seen in the breast. IMPRESSION: BENIGN There is no mammographic evidence of malignancy. Exam findings were conveyed to the patient. Patient describes small bumps near the areolar nipple complex. Denies eczema like rash and nipple discharge. Patient is advised to monitor for significant change. Clinical follow-up is recommended. A 1 year screening mammogram is recommended. 11/11/2023 Based on the Tyrer Cuzick model (a risk assessment model) the patient's lifetime risk is 11.3% and her 10 year risk is 6.3%. According to the ACR, ACS, and NCCN guidelines, an annual breast MRI exam along with mammogram is recommended if the patient's lifetime risk is 20% or greater. This exam was interpreted at Station ID: [id number]. NOTE: For mammograms, a report in lay terms will be sent to the patient. Approximately 15% of breast malignancies will not be visualized mammographically. In the management of a palpable breast mass, a negative mammogram must not discourage biopsy of a clinically suspicious lesion. Electronically Signed By: Jose Son M.D. slc/:06/16/2023 11:07:51 letter sent: Clinical Evaluation ACR BI-RADS Category 2: Benign Finding(s) 3342F
== END ==
PROVIDERS: PCP Registered Nurse; Referring Provider Registered Nurse; Visit Provider Registered Nurse
DX: N64.59 Other signs and symptoms in breast (principal)
CPT/HCPCS: 77065; G0279

== ENCOUNTER 2024-01-25 23:58 | Emergency (ER) | payer MEDICARE, OTHER, SELFPAY ==
[2024-01-26 00:04] VITALS: BP 114/54; PULSE 116; RESP 20; TEMP 36.6; O2SAT 97; BMI 18.3
[2024-01-26 00:25] LABS: Alanine Aminotransferase 17 IU/L (<35); Albumin 4.1 g/dL (3.5-5.0); Albumin Globulin Ratio 1.6 (1.0-2.8); Alkaline Phosphatase 46 U/L (38-126); Aspartate Aminotransferase 27 IU/L (14-36); BUN Creatinine Ratio 44.3 (6-22); Bilirubin Total 0.4 mg/dL (0.2-1.3); Blood Urea Nitrogen 27 mg/dL (7-17); Carbon Dioxide 26 mmol/L (22-32); Chloride 109 mmol/L (98-107); Estimated Glomerular Filt Rate > 60 mL/min (>60); Globulin 2.5 g/dL (1.7-4.1); Glucose 90 mg/dL (80-110); HEMOLYSIS 34 (0-50); Lipase 173 U/L (23-300); Magnesium 2.1 mg/dL (1.6-2.3); Potassium 4.1 mmol/L (3.4-5.1); Sodium 138 mmol/L (137-145); Total Protein 6.6 g/dL (6.3-8.2)
--- NOTE | 2024-01-26 00:26 | ED.ARRPALP ---
HPI - Arrhythmia/Palpitations General Chief Complaint: Arrhythmia/Palpitations Stated Complaint: palpatations Time Seen by Provider: 01/25/24 23:58 Source: patient and EMS Mode of arrival: EMS History of Present Illness HPI narrative: Patient is a 68-year-old female who is brought into the emergency department for palpitations. Patient states that earlier this evening she went to bed at her normal state of health. She woke up approximately 1-1/2 hours later with her heart beating fast. No shortness of breath. No lightheadedness. She has had 1 prior episode of AFib. Afterwards she was given a prescription for metoprolol that she can take as needed so she did take 1 dose of her metoprolol. She then contacted EMS. EMS gave her diltiazem which improved her heart rate from the upper 100 range down to approximately 120. Patient is still having palpitations. Related Data Home Medications Medication Instructions Recorded Confirmed estradiol 0.01% (0.1 mg/gram) 1 applic vaginal 3XW 09/17/18 05/18/23 vaginal cream magnesium glycinate 100 mg tablet 1 tab PO TID 09/17/18 05/18/23 metoprolol succinate 25 mg 25 mg PO PRN PRN palpitations 09/17/18 05/18/23 tablet,extended release 24 hr ranitidine HCl 150 mg tablet 150 mg PO BID 09/17/18 05/18/23 (Zantac) simethicone 125 mg capsule (Gas-X 1 tab PO BID 09/17/18 05/18/23 Extra Strength) Previous Rx's Medication Instructions Recorded prednisone 20 mg tablet 40 mg (2 x 20 mg) PO DAILY #6 tabs 05/18/23 sodium,potassium,mag sulfates 17.5 See Rx Instructions PO .COMPLEX 09/13/23 gram-3.13 gram-1.6 gram oral soln #354 mL (Suprep Bowel Prep Kit) metoprolol tartrate 25 mg tablet 25 mg PO DAILY #30 tabs 01/26/24 Allergies Allergy/AdvReac Type Severity Reaction Status Date / Time itraconazole [From SPORANOX] Allergy Unknown Verified 05/18/23 13:42 Review of Systems Review of Systems ROS Unobtainable: All systems reviewed & are unremarkable except as noted in HPI and below Patient History Social History Smoking Status: Never smoker Smoking Status: Never smoker alcohol intake frequency: holidays/special occasions only Substance Use Type: does not use Exam Initial Vital Signs Initial Vital Signs: Vital Signs Temperature 97.8 F 01/26/24 00:04 Pulse Rate 116 H 01/26/24 00:04 Respiratory Rate 20 01/26/24 00:04 Blood Pressure 114/54 L 01/26/24 00:04 Pulse Oximetry 97 01/26/24 00:04 Oxygen Delivery Method Room Air 01/26/24 00:04 Const General: cooperative, comfortable and No ill appearing HENMT Head: normal to inspection and normocephalic Resp Effort & Inspection: normal respiratory effort Auscultation: clear to auscultation bilaterally Cardio Rate: tachycardic Rhythm: abnormal rhythm GI Inspection: normal to inspection Skin General: no rashes or lesions noted Neuro General: patient alert, patient awake and moves all extremities Extrem General: capillary refill normal Course Orders Ordered: ED Orders 01/26/24 00:00 Complete Blood Count AUTO DIFF Stat Comprehensive Metabolic Panel Stat Lipase Stat Magnesium Stat 01/26/24 00:43 EKG-12 Lead Stat Discontinued Medications Fentanyl (Fentanyl 100 Mcg/2 Ml Inj) 12.5 mcg IV NOW ONE Stop: 01/26/24 00:27 Last Admin: 01/26/24 00:56 Dose: Not Given Documented By: BELINDA Sodium Chloride (Normal Saline 0.9%) 1,000 mls @ 125 mls/hr IV CONT CATINA Last Admin: 01/26/24 01:19 Dose: Not Given Documented By: VALENTIN Propofol (Propofol 200 Mg/20 Ml Vial) 100 mg IV NOW ONE Stop: 01/26/24 00:27 Last Admin: 01/26/24 00:57 Dose: Not Given Documented By: BELINDA Vital Signs Vital signs: Vital Signs - 8 hr 01/26/24 00:04 01/26/24 00:49 01/26/24 01:00 Temperature 97.8 F Pulse Rate 116 H 60 58 L Respiratory Rate 20 22 22 Blood Pressure 114/54 L Pulse Oximetry 97 98 97 Oxygen Delivery Method Room Air 01/26/24 01:00 Temperature Pulse Rate Respiratory Rate Blood Pressure 93/59 L Pulse Oximetry Oxygen Delivery Method MDM - Arrhythmia/Palpitations Lab Data Attestation: I reviewed the patient's lab results. 01/26/24 00:00 01/26/24 00:00 Labs: Lab Results 01/26/24 Range/Units 00:00 WBC 5.1 (4.5-11.0) X10^3/uL RBC 4.35 (4.0-5.2) X10^6/uL Hgb 13.1 (12.0-16.0) g/dL Hct 39.5 (36-46) % MCV 90.8 (80-100) fL MCH 30.1 (26-34) PG MCHC 33.2 (30-36) % RDW 14.0 (11.6-14.8) % Plt Count 235 (150-400) X10^3/uL Neut % (Auto) 45.2 L (50-75) % Lymph % (Auto) 39.2 (25-40) % Motley % (Auto) 9.6 (3-14) % Eos % (Auto) 4.5 H (2-4) % Baso % (Auto) 1.5 (0-2) % Neut # (Auto) 2300 (2609-2265) /uL Lymph # (Auto) 2000 (5216-5865) /uL Motley # (Auto) 500 (0-900) /uL Eos # (Auto) 200 (0-450) /uL Baso # (Auto) 100 (0-100) /uL Sodium 138 (137-145) mmol/L Potassium 4.1 (3.4-5.1) mmol/L Chloride 109 H (98-107) mmol/L Carbon Dioxide 26 (22-32) mmol/L BUN 27 H (7-17) mg/dL Creatinine 0.61 (0.52-1.04) mg/dL Estimated GFR > 60 (>60) mL/min BUN/Creatinine Ratio 44.3 H (6-22) Glucose 90 (80-110) mg/dL Calcium 9.0 (8.4-10.2) mg/dL Magnesium 2.1 (1.6-2.3) mg/dL Total Bilirubin 0.4 (0.2-1.3) mg/dL AST 27 (14-36) IU/L ALT 17 (<35) IU/L Alkaline Phosphatase 46 (38-126) U/L Total Protein 6.6 (6.3-8.2) g/dL Albumin 4.1 (3.5-5.0) g/dL Globulin 2.5 (1.7-4.1) g/dL Albumin/Globulin Ratio 1.6 (1.0-2.8) Lipase 173 (23-300) U/L ECG Data Attestation: I personally reviewed and interpreted this ECG as follows: Interpretation: Presentation EKG AFib Ventricular rate 116 Normal axis Normal QRS Normal QTC Nonspecific ST T wave changes Post cardioversion Sinus bradycardia Ventricular rate of 57 Normal axis Normal QRS Normal QTC No ST T wave changes MDM Narrative Medical decision making narrative: It appears that the patient's heart rate did improve after the diltiazem provided by EMS however she still is in AFib with a heart rate in the 120s. Her symptoms started just a couple hours ago. So the patient is a candidate for a cardioversion. We discussed the risks and benefits of this. We discussed rate control versus rhythm control and the patient opted for the cardioversion. Prior to us proceeding with the cardioversion the patient converted on her own. Patient states she had a resolution of symptoms afterwards. Had a discussion with her regarding AFib. The plan will be is to send her home with metoprolol. The prescription that she has is over 1-year-old. Advised that she contact her front desk officer for a follow-up. She was given return precautions. She expressed understanding and agreement. Discharge Plan Departure Patient Disposition: Home Clinical Impression: Atrial fibrillation Instructions: DI for Atrial Fibrillation Activity Restrictions/Additional Instructions: Continue to take all of your medications as directed. I do recommend tomorrow you contact your front desk officer for a follow-up. Return to the emergency department for new or worsening symptoms. Prescriptions: New metoprolol tartrate 25 mg tablet 25 mg PO DAILY Qty: 30 0RF No Action prednisone 20 mg tablet 40 mg PO DAILY Qty: 6 0RF sodium,potassium,mag sulfates [Suprep Bowel Prep Kit] 17.5-3.13-1.6 gram recon soln See Rx Instructions PO .COMPLEX Qty: 354 0RF Rx Instructions: take as directed by Physician simethicone [Gas-X Extra Strength] 125 mg Capsule 1 tab PO BID ranitidine HCl [Zantac] 150 mg Tablet 150 mg PO BID metoprolol succinate 25 mg tablet extended release 24 hr 25 mg PO PRN PRN (Reason: palpitations) estradiol [Estrace] 0.01 % (0.1 mg/gram) cream 1 applic Vaginal 3XW Patient Comments: I 2 GRAMS VAGINALLY 3 TIMES A WK magnesium glycinate 100 mg Tablet 1 tab PO TID Referrals: Twila Ball ARNP [Primary Care Provider] - Stand Alone Forms: Patient Portal/API
[2024-01-26 00:27] LABS: Add Manual Diff / Slide Review NO; Basophils Absolute Auto 100 /uL (0-100); Basophils Percent Auto 1.5 % (0-2); Eosinophils Absolute Auto 200 /uL (0-450); Eosinophils Percent Auto 4.5 % (2-4); Hematocrit 39.5 % (36-46); Hemoglobin 13.1 g/dL (12.0-16.0); Lymphocytes Absolute Auto 2000 /uL (1100-4500); Lymphocytes Percent Auto 39.2 % (25-40); Mean Corpuscular HGB Conc 33.2 % (30-36); Mean Corpuscular Hemoglobin 30.1 PG (26-34); Mean Corpuscular Volume 90.8 fL (80-100); Monocytes Absolute Auto 500 /uL (0-900); Monocytes Percent Auto 9.6 % (3-14); Neutrophils Absolute Auto 2300 /uL (1500-7000); Neutrophils Percent Auto 45.2 % (50-75); Platelet Count 235 X10^3/uL (150-400); Red Blood Cell Count 4.35 X10^6/uL (4.0-5.2); White Blood Cell Count 5.1 X10^3/uL (4.5-11.0)
[2024-01-26 00:49] VITALS: PULSE 60; RESP 22; O2SAT 98
[2024-01-26 01:00] VITALS: BP 93/59; PULSE 58; RESP 22; O2SAT 97
== END 2024-01-26 01:24 | disposition home or self-care (01) ==
PROVIDERS: Emergency Provider Emergency Medicine; PCP Registered Nurse
DX: I48.91 Unspecified atrial fibrillation (principal); R00.1 Bradycardia, unspecified
CPT/HCPCS: 80053; 83690; 83735; 85025; 93005; 99281; 99284

== ENCOUNTER → 2024-01-31 13:58 | Outpatient (CLI) | payer MEDICARE, OTHER, SELFPAY ==
--- NOTE | 2024-01-31 14:01 | DI.RAD.S_ITS ---
PROCEDURE: XR LUMBAR SPINE MIN 4V INDICATIONS: LOW BACK PAIN TECHNIQUE: 5 views of the lumbar spine were acquired, including bilateral oblique views. COMPARISON: None. FINDINGS: Bones: 5 nonrib-bearing vertebrae are present. Minimal 1-2 mm grade 1 anterolisthesis at L4-5. No vertebral body compression fractures. No suspicious bony lesions. Multilevel disc space narrowing degenerative endplate changes, most notably at the L3-4 and L4-5 levels. There is multilevel facet hypertrophy. Soft tissues: Overlying bowel gas pattern is normal. No suspicious soft tissue calcifications. Oblique images: No pars defects. IMPRESSION: Phez-co-perteiww multilevel spondylosis. Approved by: Ford Moyer M.D. on 01/31/2024 at 20:34
== END ==
PROVIDERS: PCP Registered Nurse; Referring Provider Registered Nurse; Visit Provider Registered Nurse
DX: M47.816 Spondylosis without myelopathy or radiculopathy, lumbar region (principal); M54.50 Low back pain, unspecified; G89.29 Other chronic pain
CPT/HCPCS: 72110

== ENCOUNTER → 2024-03-01 10:02 | Outpatient (CLI) | payer MEDICARE, OTHER, SELFPAY ==
--- NOTE | 2024-03-01 10:03 | DI.MG.S_ITS ---
BILATERAL DIGITAL SCREENING MAMMOGRAM 3D/2D WITH CAD: 03/01/2024 CLINICAL: Routine screening. Comparison is made to exams dated: 06/16/2023 mammogram, 11/10/2022 mammogram, 10/27/2021 mammogram, and 09/15/2020 mammogram - [facility]. Both breasts are extremely dense, which lowers the sensitivity of mammography (category d />75% glandular tissue). Current study was also evaluated with a Computer Aided Detection (CAD) system. There are benign calcifications in both breasts. There also are benign post operative findings in both breasts. No significant masses, calcifications, or other findings are seen in either breast. There has been no significant interval change. IMPRESSION: BENIGN There is no mammographic evidence of malignancy. A 1 year screening mammogram is recommended. Based on the Tyrer Cuzick model (a risk assessment model) the patient's lifetime risk is 10.7% and her 10 year risk is 6.4%. According to the ACR, ACS, and NCCN guidelines, an annual breast MRI exam along with mammogram is recommended if the patient's lifetime risk is 20% or greater. This exam was interpreted at Station ID: [id number]. NOTE: For mammograms, a report in lay terms will be sent to the patient. Approximately 15% of breast malignancies will not be visualized mammographically. In the management of a palpable breast mass, a negative mammogram must not discourage biopsy of a clinically suspicious lesion. Electronically Signed By: Duy asif/radha:03/01/2024 10:59:19 letter sent: Normal Exam ACR BI-RADS Category 2: Benign Finding(s) 3342F
== END ==
LOC: MAMMO 10:03
PROVIDERS: PCP Registered Nurse; Referring Provider Registered Nurse; Visit Provider Registered Nurse
DX: Z12.31 Encounter for screening mammogram for malignant neoplasm of breast (principal); R92.343 Mammographic extreme density, bilateral breasts
CPT/HCPCS: 77063; 77067

== ENCOUNTER 2024-03-26 09:51 | Day surgery (SDC) | payer MEDICARE, OTHER, SELFPAY ==
[2024-03-26] MEDS: LACTATED RINGERS 1,000 ML 42 ML IV (10:07)
[2024-03-26 10:44] VITALS: BP 122/71; PULSE 79; RESP 16; TEMP 37; O2SAT 99
--- NOTE | 2024-03-26 11:14 | PM.HP.1 ---
History of Present Illness History of Present Illness Date Patient Seen: 03/26/24 Time Patient Seen: 11:14 Chief complaint: Screening Colonoscopy Narrative: 68-year-old woman here for screening colonoscopy. Last colonoscopy 5 years ago. Mother developed colon cancer at 90 years of age. No abdominal concerns today. [facility] Social History Smoking Status: Never smoker alcohol intake: current Meds Home Medications and Allergies Home Medications Medication Instructions Recorded Confirmed Type estradiol 0.01% (0.1 mg/gram) 1 applic vaginal 3XW 09/17/18 03/26/24 History vaginal cream magnesium glycinate 100 mg tablet 1 tab PO TID 09/17/18 05/18/23 History apixaban 5 mg tablet (Eliquis) 5 mg PO BID 03/26/24 03/26/24 History diltiazem HCl 30 mg tablet 30 mg PO DAILY 03/26/24 03/26/24 History Allergies Allergy/AdvReac Type Severity Reaction Status Date / Time itraconazole [From SPORANOX] Allergy Unknown Verified 03/26/24 10:33 Exam Vital Signs (past 8 hours): - 03/26/24 10:44 Temperature 98.6 F Pulse Rate 79 Respiratory Rate 16 Blood Pressure 122/71 Pulse Oximetry 99 Oxygen Delivery Method Room Air Oxygen Delivery Method Room Air Narrative Exam Narrative: General adult woman alert oriented no acute distress Chest nonlabored respiration Extremities warm well perfused Assessment & Plan Assessment & Plan narrative: The patient requires colorectal screening and colonoscopy is recommended. Technical details were discussed. Risks, benefits, alternatives explained. Risks including but not limited to myocardial infarction, aspiration, bleeding, pain, missed lesion, incomplete examination, need for further radiographic studies, intestinal injury, and need for major abdominal surgery were discussed. All questions were answered to their satisfaction, and they are in agreement with this plan.
[2024-03-26 11:43] VITALS: BP 86/61; PULSE 77; RESP 18; TEMP 36.7; O2SAT 99
[2024-03-26 11:48] VITALS: BP 98/61; PULSE 59; RESP 13; TEMP 36.7; O2SAT 99
--- NOTE | 2024-03-26 11:49 | P.OP.COLON_ITS ---
Operative Date/Time/Diagnoses Date of procedure: 03/26/24 Time of procedure: 11:49 Pre-op diagnosis: Colorectal screening Post-op diagnosis: same Procedure & Clinicians Study performed: Screening colonoscopy Same procedure as scheduled: Yes Indications: Colorectal screening Mother history of colon cancer at advanced age (90) Surgeon: Blayne Summers Procedure Notes Procedure in detail: The history and physical was performed/updated and the patient is ASA class is 2. The procedure was discussed in detail with the patient. Potential risks complications including infection, bleeding, missed diagnosis, perforation, need for surgery, and were explained. Their questions were answered and informed consent was obtained. Patient was brought to the procedure room and placed standard monitoring equipment. The patient's vital signs were monitored continuously throughout the entire procedure. Prior to starting time-out was performed. The patient was placed in the left lateral recumbent position. Procedural sedation was administered by anesthesia. Examination began with a thorough inspection of the perianal area there was no evidence of fissures, fistulae, external hemorrhoids or cutaneous malignancy. The colonoscopy scope was then placed into the anal canal and was advanced to the cecum, which was identified by the ileocecal valve, the appendiceal orifice and the confluence of the taenia. The scope was then slowly withdrawn examining colon thoroughly in all directions, irrigating it of any residual stool. The scope was retroflexed within the rectum The patient tolerated the procedure well. They will be discharged once criteria are met. The prep was of good/excellent quality. The withdrawl time was 7 minutes. FINDINGS * Unremarkable colonoscopy. Normal healthy colonic mucosa without polyps or masses. Specimen(s): none sent Impression: Normal colonoscopy Post-procedure Plan for aftercare: Repeat colonoscopy 5-10 years. If 10 years consider interval alternative screening test Disposition: same day surgery
[2024-03-26 11:57] VITALS: BP 106/56; PULSE 63; RESP 18; TEMP 36.6; O2SAT 97
== END 2024-03-26 12:05 | disposition home or self-care (01) ==
PROVIDERS: PCP Registered Nurse; Referring Provider Surgery; Visit Provider Surgery
PROC: 0DJD8ZZ Inspection of Lower Intestinal Tract, Via Natural or Artificial Opening Endoscopic (ICD-10-PCS; CPT 45378; principal; 2024-03-26 10:45)
DX: Z12.11 Encounter for screening for malignant neoplasm of colon (principal)
CPT/HCPCS: G0121; 93010; J2704

== ENCOUNTER → 2024-07-31 | Outpatient (CLI) | payer MEDICARE, OTHER, SELFPAY ==
--- NOTE | 2024-07-31 | DI.US.S_ITS ---
ULTRASOUND OF LEFT BREAST: 07/31/2024 CLINICAL: Left breast pain-now resolved. Comparison is made to exams dated: 07/31/2024 mammogram, 03/01/2024 mammogram, 06/16/2023 mammogram, and 11/10/2022 mammogram - [facility]. Color flow and real-time ultrasound of the left breast were performed. Drake scale images of the real-time examination were reviewed. No significant abnormalities were seen sonographically in the left breast. IMPRESSION: NEGATIVE There is no sonographic evidence of malignancy. There is no abnormality seen in the left breast to correspond with the area of clinical concern and now resolved pain in the upper outer quadrant, however, recommend clinical follow up for persistent or worsening symptoms, or development of any clinically suspicious findings. Return to annual mammogram screening schedule is recommended. Future imaging is recommended as follows: 03/02/2025 screening mammogram. Findings and recommendations were conveyed to the patient during today's evaluation. This exam was interpreted at Station ID: [id number]. Electronically Signed By: Reed Ford M.D. at/:08/14/2024 11:01:36 letter sent: Clinical Evaluation ACR BI-RADS Category 1: Negative
--- NOTE | 2024-07-31 10:14 | DI.MG.S_ITS ---
UNILATERAL LEFT DIGITAL DIAGNOSTIC MAMMOGRAM 3D/2D: 07/31/2024 CLINICAL: Focal left breast pain. Comparison is made to exams dated: 03/01/2024 mammogram, 06/16/2023 mammogram, 11/10/2022 mammogram, and 10/27/2021 mammogram - [facility]. The breasts are extremely dense, which lowers the sensitivity of mammography (category d />75% glandular tissue). No significant masses, calcifications, or other findings are seen in the breast. IMPRESSION: INCOMPLETE: NEED ADDITIONAL IMAGING EVALUATION There is no abnormality seen in the left breast to correspond with the area of clinical concern and pain indicated by square markers in the upper outer quadrant, however, ultrasound is recommended for further evaluation and is scheduled to immediately follow this examination. Based on the Tyrer Cuzick model (a risk assessment model) the patient's lifetime risk is 10.7% and her 10 year risk is 6.4%. According to the ACR, ACS, and NCCN guidelines, an annual breast MRI exam along with mammogram is recommended if the patient's lifetime risk is 20% or greater. This exam was interpreted at Station ID: [id number]. NOTE: For mammograms, a report in lay terms will be sent to the patient. Approximately 15% of breast malignancies will not be visualized mammographically. In the management of a palpable breast mass, a negative mammogram must not discourage biopsy of a clinically suspicious lesion. Electronically Signed By: Reed Ford M.D. aty/:07/31/2024 11:11:26 letter sent: Additional Imaging Needed ACR BI-RADS Category 0: Incomplete: Need Additional Imaging Evaluation
== END ==
LOC: MAMMO 10:14
PROVIDERS: PCP Registered Nurse; Referring Provider Family Medicine; Visit Provider Family Medicine
DX: N64.4 Mastodynia (principal)
CPT/HCPCS: 76642; 77065; G0279

== ENCOUNTER 2024-08-09 12:53 | Day surgery (SDC) | payer MEDICARE, OTHER, SELFPAY ==
--- NOTE | 2024-08-09 | PATH_ITS ---
[facility] Accession Number: [id number] No. of containers..01 Tissue . 01 Material submitted: . esophagus, E-G Junction - GE JUNCTION . 01 Diagnosis: GE JUNCTION: Squamous and scant glandular mucosa with mild reactive changes suggestive of reflux. No goblet cell metaplasia, dysplasia, or malignancy identified. [facility] 08/14/20241557 Local . 01 Electronically signed: . David Cotton MD, Pathologist NPI- [id number] . 01 Gross description: . Received in formalin with no identifiers (authorization form received) and no site on jar, are two guajardo soft tissue fragments, 0.3 cm each in greatest dimension, submitted in A1. ([id number]) /MRV 08/14/20241557 Local . 01 Pathologist provided ICD-10: K21.00 . 01 CPT . 148313 Specimen Comment: A courtesy copy of this report has been sent to [phone] Performed at: [address] [id number] MD David Cotton MD Phone: [phone]
[2024-08-09 14:01] VITALS: BP 126/72; PULSE 68; RESP 16; TEMP 36.2; O2SAT 100
--- NOTE | 2024-08-09 14:37 | PM.HP.1 ---
History of Present Illness History of Present Illness Date Patient Seen: 08/09/24 Time Patient Seen: 14:37 Chief complaint: EGD w/poss bx Narrative: 68-year-old woman with chronic reflux recently refractory to medication. Describes worsening of her reflux following a cardiac ablation procedure this year. Occasionally difficulty swallowing. No history of Barretts esophagus. [facility] Social History Smoking Status: Never smoker alcohol intake: current Meds Home Medications and Allergies Home Medications Medication Instructions Recorded Confirmed Type estradiol 0.01% (0.1 mg/gram) 1 applic vaginal 3XW 09/17/18 08/09/24 History vaginal cream magnesium glycinate 100 mg (as 1 tab PO TID 09/17/18 08/09/24 History glycinate) tablet aspirin 81 mg tablet 81 mg PO DAILY 08/09/24 08/09/24 History famotidine 20 mg tablet (Pepcid AC 40 mg PO DAILY 08/09/24 08/09/24 History Maximum Strength) Allergies Allergy/AdvReac Type Severity Reaction Status Date / Time itraconazole [From SPORANOX] Allergy Unknown Verified 08/09/24 13:53 Exam Vital Signs (past 8 hours): - 08/09/24 14:01 Temperature 97.2 F L Pulse Rate 68 Respiratory Rate 16 Blood Pressure 126/72 Pulse Oximetry 100 Oxygen Delivery Method Room Air Oxygen Delivery Method Room Air Narrative Exam Narrative: General adult woman alert oriented no acute distress Chest nonlabored respiration Extremities warm well perfused Assessment & Plan Assessment and plan (1) GERD (gastroesophageal reflux disease): Status: Acute Assessment & Plan narrative: Esophagogastroduodenoscopy is recommended. Technical details were discussed. Risks, benefits, alternatives explained. Risks including but not limited to myocardial infarction, aspiration, bleeding, pain, missed lesion, incomplete examination, need for further radiographic studies, intestinal injury, and need for major abdominal surgery were discussed. All questions were answered to their satisfaction, and they are in agreement with this plan. Time-Based Coding :: [TOTAL MINUTES] spent with patient and on the chart (including review of chart, obtaining history, exam, reviewing outside data, placing orders, documenting exam and treatment plan, and counseling patient) on [DATE].
--- NOTE | 2024-08-09 14:47 | P.OP.EGD_ITS ---
Operative Date/Time/Diagnoses Date of procedure: 08/09/24 Time of procedure: 14:47 Pre-op diagnosis: Refractory gastroesophageal reflux Procedure & Clinicians Study performed: Esophagogastroduodenoscopy Same procedure as scheduled: Yes Indications: 68-year-old woman history of GERD now medically refractory Surgeon: Blayne Summers Procedure Notes Procedure in detail: The history and physical was performed/updated and the patient is ASA class is 2. The procedure was discussed in detail with the patient. Potential risks complications including infection, bleeding, missed diagnosis, perforation, need for surgery, and were explained. Their questions were answered and informed consent was obtained. Patient placed in left lateral decubitus position. Time out was performed. Procedural sedation was administered by Anesthesia. A bite block was placed. th e scope was inserted into the mouth and advanced through the esophagus and into the stomach. The pylorus was intubated and the duodenum was examined to the 2nd portion. The scope was then withdrawn into the stomach and was retroflexed. The stomach was decompressed and scope was withdrawn slowly through the esophagus. FINDINGS -no hiatal hernia -no gastritis or peptic ulcer. -normal-appearing GE junction biopsies taken with forceps. -no significant esophagitis. The patient tolerated the procedure well and will be discharged when they meet criteria. Specimen(s): other (GE junction) Impression: Normal upper endoscopy Post-procedure Recommendations: Reflux diet Plan for aftercare: Continue Pepcid Disposition: same day surgery
[2024-08-09 14:51] VITALS: BP 115/66; PULSE 77; RESP 16; TEMP 36.4; O2SAT 96
[2024-08-09 14:56] VITALS: BP 103/59; PULSE 71; RESP 18; O2SAT 96
[2024-08-09 15:01] VITALS: BP 104/64; PULSE 89; RESP 115; O2SAT 96
[2024-08-09 15:07] VITALS: BP 105/65; PULSE 70; RESP 15; TEMP 36.3; O2SAT 99
== END 2024-08-09 15:35 | disposition home or self-care (01) ==
PROVIDERS: PCP Registered Nurse; Referring Provider Surgery; Visit Provider Surgery
PROC: 0DJ08ZZ Inspection of Upper Intestinal Tract, Via Natural or Artificial Opening Endoscopic (ICD-10-PCS; CPT 43239; principal; 2024-08-09 14:00)
DX: K21.9 Gastro-esophageal reflux disease without esophagitis (principal)
CPT/HCPCS: 43239; J2704

== ENCOUNTER → 2024-12-27 10:35 | Outpatient (CLI) | payer MEDICARE, OTHER, SELFPAY ==
--- NOTE | 2024-12-27 10:39 | DI.RAD.S_ITS ---
PROCEDURE: FL BARIUM SWALLOW INDICATIONS: ESO DYSPHAGIA,LARYNGOPHARYNGEAL REFLUX COMPARISON: None. FINDINGS: Function: There is normal esophageal peristalsis. No elicited gastroesophageal reflux. There is normal transit of a calibrated barium tablet through the esophagus into the stomach. Morphology: Air-contrast images demonstrate normal mucosal morphology. Single contrast views show no esophageal strictures, extrinsic mass effects, or diverticula. Limited images of the stomach demonstrate normal appearance. IMPRESSION: Normal study. Dictated by: Laureano Astorga M.D. on 12/27/2024 at 11:44 Approved by: Laureano Astorga M.D. on 12/27/2024 at 11:44
== END ==
LOC: RAD 10:38
PROVIDERS: PCP Registered Nurse; Referring Provider Otolaryngology; Visit Provider Otolaryngology
DX: R13.19 Other dysphagia (principal); K21.9 Gastro-esophageal reflux disease without esophagitis
CPT/HCPCS: 74220

== ENCOUNTER → 2025-03-20 10:02 | Outpatient (CLI) | payer MEDICARE, OTHER, SELFPAY ==
--- NOTE | 2025-03-20 10:04 | DI.MG.S_ITS ---
MM screening mammo BI: 03/20/2025. BI-RADS: 2 CLINICAL: 69-year old female for bilateral screening mammogram. Tyrer-Cuzick lifetime risk of 5.5%. No personal or first-degree family history of breast cancer. The patient had prior bilateral breast biopsies. PRIOR EXAMS 07/31/2024, 03/01/2024, 06/16/2023, 11/10/2022, 10/27/2021, 09/15/2020, 09/10/2019, 06/05/2018, 05/21/2018, 05/03/2018, 08/11/2016. MAMMOGRAPHY TECHNIQUE: 2D and 3D (tomosynthesis) digital mammographic views obtained, with additional images as needed for full coverage. Current study was also evaluated with a Computer Aided Detection (CAD) system. DENSITY D. The breasts are extremely dense, which lowers the sensitivity of mammography. MAMMOGRAPHY FINDINGS Bilateral: Benign-appearing post-surgical changes noted. There are no suspicious masses, calcifications, or other findings in the breast. IMPRESSION: * No evidence of malignancy with benign findings. RECOMMENDATIONS Bilateral * Annual screening mammography. OVERALL ASSESSMENT CATEGORY BI-RADS-2: Benign. The [employer] recommends annual screening mammography beginning at age 40 for women with average risk of breast cancer. ELECTRONICALLY SIGNED: Nati Frank M.D. on 03/22/2025 at 01:02:02 AM PT Interpreting Station ID: [id number]
== END ==
PROVIDERS: PCP Nurse Practitioner Family; Referring Provider Nurse Practitioner Family; Visit Provider Nurse Practitioner Family
DX: Z12.31 Encounter for screening mammogram for malignant neoplasm of breast (principal); R92.343 Mammographic extreme density, bilateral breasts
CPT/HCPCS: 77063; 77067